=== PATIENT | female | born 1995 | race Hispanic/Latino ===

== ENCOUNTER → 2022-04-18 | Outpatient (REF) ==
[2022-04-18 10:35] LABS: RSV AMPLIFICATION NEGATIVE (NEGATIVE)
== END ==
LOC: M EMP 08:03
PROVIDERS: ATTEND Family Medicine
DX: Z20.822 Contact with and (suspected) exposure to COVID-19 (principal)

== ENCOUNTER 2022-04-21 23:32 | Emergency (ER) | payer OTHER ==
[~2022-04-21] VITALS: Ht 152.4 cm; Wt 77.4 kg
[2022-04-22] MEDS ORDERED: ACETAMINOPHEN 325 MG TAB PO ONE (00:45)
[2022-04-22 01:53] VITALS: BP 118/74
== END 2022-04-22 01:55 | disposition home or self-care (01) ==
LOC: M ED 23:32
DX: J02.9 Acute pharyngitis, unspecified (principal); R05.9 Cough, unspecified; E28.2 Polycystic ovarian syndrome

== ENCOUNTER → 2022-08-21 | Outpatient (REF) | LOC: M LABSMTC 09:38 | PROVIDERS: ATTEND Family Medicine | DX: Z20.822 Contact with and (suspected) exposure to COVID-19 (principal); Z11.52 Encounter for screening for COVID-19 ==

== ENCOUNTER → 2022-08-24 | Outpatient (REF) | LOC: M EMP 08:54 | PROVIDERS: ATTEND Family Medicine | DX: Z20.822 Contact with and (suspected) exposure to COVID-19 (principal); Z11.52 Encounter for screening for COVID-19 ==

== ENCOUNTER → 2023-06-10 | Outpatient (CLI) | payer OTHER | LOC: M WHC 09:52 | PROVIDERS: ATTEND Advanced Practice Midwife | DX: O44.10 Complete placenta previa with hemorrhage, unspecified trimester (principal); Z3A.22 22 weeks gestation of pregnancy ==

== ENCOUNTER 2023-10-14 16:47 | Inpatient (IN) | payer OTHER ==
[~2023-10-14] VITALS: Ht 152.4 cm; Wt 85.4 kg
[2023-10-14] MEDS ORDERED: PRENTAB9 PO (17:03)
[2023-10-14] MEDS ORDERED: HOME MED LIST COMPLETE! XX SCH (17:05)
[2023-10-14 17:14] VITALS: BP 117/72
[2023-10-14 17:43] LABS: HEMATOCRIT 39.1 % (36.0-47.0); MEAN CORPUSCULAR HEMOGLOBIN 27.5 pg (27.0-33.0); MEAN CORPUSCULAR HGB CONC 33.2 g/dl (32.0-36.5); MEAN CORPUSCULAR VOLUME 82.8 fl (80.0-96.0); PLATELET COUNT, AUTOMATED 306 10^3/uL (150-450); RED BLOOD COUNT 4.72 10^6/uL (4.00-5.40); WHITE BLOOD COUNT 9.4 10^3/uL (4.0-10.0)
[2023-10-14] MEDS ORDERED: LACTATED RINGER'S 1000 ML IV STA (17:51)
[2023-10-14] MEDS ORDERED: OXYTOCIN INJ 10UNITS/ML 1ML VIAL IV PRN (17:55)
[2023-10-14] MEDS ORDERED: CARBOPROST TROMETHAMINE 250 MCG/ML AMP IM PRN (17:55)
[2023-10-14] MEDS ORDERED: OXYTOCIN DRIP 30 UNITS in IV 1 EA IV PRN ×6 (17:55)
[2023-10-14] MEDS ORDERED: OXYTOCIN DRIP 30 UNITS in IV 1 EA IV SCH (17:55)
[2023-10-14] MEDS ORDERED: LIDOCAINE 1% MDV 20ML VIAL INFIL PRN (17:55)
[2023-10-14] MEDS ORDERED: TRANEXAMIC ACID INJection 1,000 MG in NS 100 ML IV PRN (17:55)
[2023-10-14] MEDS ORDERED: METHYLERGONOVINE MALEATE 0.2MG/ML 1ML VIAL IM PRN (17:55)
[2023-10-14] MEDS ORDERED: OXYTOCIN INJ 10UNITS/ML 1ML VIAL IM PRN (17:55)
[2023-10-14 18:06] VITALS: BP 116/60
[2023-10-14] MEDS: LR 1,000 ML IV SCH ×2 (18:09→22:32)
[2023-10-14] MEDS: miSOPROStol 50MCG 1/2 TABLET PO PRN (18:19)
[2023-10-14 19:22] VITALS: BP 111/59
[2023-10-14 20:29] VITALS: BP 127/63
[2023-10-14 22:12] VITALS: BP 99/53
[2023-10-14 23:39] VITALS: BP 94/55
[2023-10-15] VITALS (37 sets, daily range): BP systolic 96–189; BP diastolic 48–157
[2023-10-15] MEDS: miSOPROStol 50MCG 1/2 TABLET PO PRN (03:44)
[2023-10-15] MEDS: LR 1,000 ML IV SCH ×5 (03:46→23:56)
[2023-10-15] MEDS ORDERED: EPIDURAL/PCA KEYS XX PRN (15:35)
[2023-10-15] MEDS ORDERED: ONDANSETRON 4MG 2ML VIAL IV PRN (15:35)
[2023-10-15] MEDS ORDERED: ePHEDrine SULFATE 25 MG/5 ML(5MG/ML) SYRINGE IVP PRN (15:35)
[2023-10-15] MEDS ORDERED: LR 500 ML IV PRN (15:35)
[2023-10-15] MEDS ORDERED: NALOXONE INJ 0.4MG/1ML VIAL IV PRN (15:35)
[2023-10-15] MEDS ORDERED: diphenhydrAMINE 50MG/ML VIAL IV PRN (15:35)
[2023-10-15] MEDS: FENTANYL/ROPIVACAINE/NACL BAG 100 ML EPIDURAL SCH (16:01)
[2023-10-16] VITALS (23 sets, daily range): BP systolic 93–148; BP diastolic 52–87; TEMP 98.4; O2SAT 96–99
[2023-10-16] MEDS: FENTANYL/ROPIVACAINE/NACL BAG 100 ML EPIDURAL SCH (00:29)
[2023-10-16] MEDS ORDERED: ACETAMINOPHEN 500 MG TAB PO ONE (07:00)
[2023-10-16] MEDS ORDERED: CLINDAMYCIN 900 MG in IV 1 EA IV ONE ×2 (07:00→15:05)
[2023-10-16] MEDS ORDERED: GENTAMICIN 120 MG in D5W 50 ML IV ONE (08:00)
[2023-10-16] MEDS ORDERED: AZITHROMYCIN INJ 500 MG, VIAL MATE ADAPTER 1 EACH in NS 250 ML IV ONE (09:30)
[2023-10-16] MEDS ORDERED: fentaNYL 100 MCG/2 ML INJECTION As Ordered ONE (09:44)
[2023-10-16] MEDS ORDERED: ONDANSETRON 4MG 2ML VIAL As Ordered ONE (09:44)
[2023-10-16] MEDS ORDERED: LIDOCAINE PRES-FREE 2% 10ML AMP As Ordered ONE (09:44)
[2023-10-16] MEDS ORDERED: OXYTOCIN INJ 10UNITS/ML 1ML VIAL As Ordered ONE ×2 (09:44→10:15)
[2023-10-16] MEDS ORDERED: MORPHINE PRES-FREE INJ 10 MG/10 ML VIAL As Ordered ONE (09:44)
[2023-10-16 10:08] LABS: CORD GAS ABE V -9.6; CORD GAS HCO3 V 18.8 MMOL/L; CORD GAS O2 SAT V 31.6 %; CORD GAS PH V 7.185 UNITS; CORD GAS PO2 V 18.4 mmHg; CORD GAS SBC V 15.5 MMOL/L; CORD GAS TCO2 V 20.4 MMOL/L
[2023-10-16 10:09] LABS: CORD GAS ABE A -10.8; CORD GAS HCO3 A 19.3 MMOL/L; CORD GAS O2 SAT A 20.9 %; CORD GAS PCO2 A 60.7 mmHg; CORD GAS PH A 7.121 UNITS; CORD GAS PO2 A 16.3 mmHg; CORD GAS SBC A 14.5 MMOL/L; CORD GAS TCO2 A 21.2 MMOL/L
[2023-10-16] MEDS ORDERED: diphenhydrAMINE 50MG/ML VIAL As Ordered ONE (10:15)
[2023-10-16] MEDS ORDERED: KETAMINE HCL 200MG/20ML VIAL As Ordered ONE (10:15)
[2023-10-16] MEDS ORDERED: PHENYLephrine 500MCG 5ML (100MCG/ML) SYRINGE As Ordered ONE (10:27)
[2023-10-16] MEDS ORDERED: MIDAZOLAM INJ 2MG/2ML VIAL As Ordered ONE (10:27)
[2023-10-16] MEDS ORDERED: oxyCODONE 5MG TAB PO PRN ×2 (11:05)
[2023-10-16] MEDS ORDERED: METOCLOPRAMIDE INJ 10MG/2ML VIAL IV PRN (11:05)
[2023-10-16] MEDS ORDERED: METHYLERGONOVINE MALEATE 0.2MG/ML 1ML VIAL IM PRN (11:05)
[2023-10-16] MEDS ORDERED: OXYTOCIN DRIP 30 UNITS in IV 1 EA IV SCH (11:05)
[2023-10-16] MEDS ORDERED: ONDANSETRON 4MG 2ML VIAL IV PRN (11:05)
[2023-10-16] MEDS: LR 1,000 ML IV SCH ×2 (11:05→19:44)
[2023-10-16] MEDS ORDERED: SIMETHICONE 80MG CHEW TAB PO PRN (11:05)
[2023-10-16] MEDS ORDERED: RHOGAM 300MCG (1500IU) INJ IM SCH (11:05)
[2023-10-16] MEDS ORDERED: KETOROLAC 60MG 2ML VIAL As Ordered ONE (11:19)
[2023-10-16] MEDS ORDERED: OXYTOCIN 30UNITS IN 0.9% NaCl 500ML IV BAG As Ordered ONE (11:19)
[2023-10-16] MEDS: ACETAMINOPHEN 500 MG TAB PO SCH ×4 (13:28→23:15)
[2023-10-16] MEDS: KETOROLAC 30 MG/ML 1ML VIAL IV SCH ×2 (18:06→23:15)
[2023-10-16] MEDS: DOCUSATE SODIUM 100MG CAPSULE PO SCH (22:46)
[2023-10-17 02:00] VITALS: BP 92/47; O2SAT 96
[2023-10-17 05:29] VITALS: BP 108/56; O2SAT 97
[2023-10-17 05:46] LABS: HEMATOCRIT 28.4 % (36.0-47.0); HEMOGLOBIN 9.3 g/dl (12.0-15.5); MEAN CORPUSCULAR HEMOGLOBIN 27.6 pg (27.0-33.0); MEAN CORPUSCULAR HGB CONC 32.7 g/dl (32.0-36.5); MEAN CORPUSCULAR VOLUME 84.3 fl (80.0-96.0); PLATELET COUNT, AUTOMATED 202 10^3/uL (150-450); RED BLOOD COUNT 3.37 10^6/uL (4.00-5.40); WHITE BLOOD COUNT 14.6 10^3/uL (4.0-10.0)
[2023-10-17] MEDS: ACETAMINOPHEN 500 MG TAB PO SCH ×4 (06:04→23:30)
[2023-10-17] MEDS: KETOROLAC 30 MG/ML 1ML VIAL IV SCH (06:05)
[2023-10-17 10:00] VITALS: BP 113/65; O2SAT 98
[2023-10-17] MEDS: DOCUSATE SODIUM 100MG CAPSULE PO SCH ×2 (10:08→21:46)
[2023-10-17] MEDS: PRENATAL VITAMINS CHEWABLE TABLET PO SCH (10:08)
[2023-10-17] MEDS: IBUPROFEN 800 MG TAB PO SCH ×2 (15:46→21:47)
[2023-10-17 19:14] VITALS: BP 117/65; O2SAT 96
[2023-10-17 22:00] VITALS: BP 122/59; O2SAT 97
[2023-10-18 02:00] VITALS: BP 134/62; O2SAT 98
[2023-10-18 06:00] VITALS: BP 122/62
[2023-10-18] MEDS: IBUPROFEN 800 MG TAB PO SCH (06:17)
[2023-10-18] MEDS: ACETAMINOPHEN 500 MG TAB PO SCH (06:17)
[2023-10-18] MEDS ORDERED: IBUP80TA PO (06:24)
[2023-10-18] MEDS ORDERED: OXYC-517 PO (06:24)
[2023-10-18] MEDS ORDERED: COLA100C5 PO (06:24)
[2023-10-18] MEDS ORDERED: ACET-683 PO (06:24)
[2023-10-18] MEDS ORDERED: MEASLES,MUMPS,RUBELLA VACCINE INJ (MMR-II) SC.IMMUN ONE (09:00)
[2023-10-18 10:00] VITALS: BP 110/70; O2SAT 99
[2023-10-18] MEDS: PRENATAL VITAMINS CHEWABLE TABLET PO SCH (10:17)
[2023-10-18] MEDS: DOCUSATE SODIUM 100MG CAPSULE PO SCH (10:17)
== END 2023-10-18 11:45 | disposition home or self-care (01) | DRG 771 ==
LOC: M LDI 16:47 → M OBS 10-16 12:25
PROVIDERS: ADMIT Obstetrics & Gynecology; ATTEND Obstetrics & Gynecology
PROC: 3E0P7VZ Introduction of Hormone into Female Reproductive, Via Natural or Artificial Opening (ICD-10-PCS; 2023-10-15)
PROC: 3E033VJ Introduction of Other Hormone into Peripheral Vein, Percutaneous Approach (ICD-10-PCS; 2023-10-15)
PROC: 10D00Z1 Extraction of Products of Conception, Low, Open Approach (ICD-10-PCS; principal; 2023-10-16 09:45)
DX: O48.0 Post-term pregnancy (principal); O41.1030 Infection of amniotic sac and membranes, unspecified, third trimester, not applicable or unspecified; Z37.0 Single live birth; Z3A.41 41 weeks gestation of pregnancy; E66.9 Obesity, unspecified; O99.214 Obesity complicating childbirth; O75.81 Maternal exhaustion complicating labor and delivery; O66.5 Attempted application of vacuum extractor and forceps; O76 Abnormality in fetal heart rate and rhythm complicating labor and delivery; O32.4XX0 Maternal care for high head at term, not applicable or unspecified

== ENCOUNTER 2024-11-20 11:41 | Emergency (ER) | payer OTHER ==
[~2024-11-20] VITALS: Ht 152.4 cm; Wt 85.5 kg
[~2024-11-20 11:41] MED LIST: ACET-683 PO; COLA100C5 PO; IBUP80TA PO; OXYC-517 PO; PRENTAB9 PO
[2024-11-20 11:45] VITALS: BP 134/58; TEMP 99.1; O2SAT 96
[2024-11-20] MEDS: ACETAMINOPHEN 500 MG TAB PO ONE (13:05)
[2024-11-20] MEDS: KETOROLAC 60MG 2ML VIAL IM ONE (13:05)
[2024-11-20 13:28] LABS: URINE PREG TEST NEGATIVE (NEGATIVE)
[2024-11-20] MEDS ORDERED: AMOX500T PO (15:26)
== END 2024-11-20 16:06 | disposition home or self-care (01) ==
LOC: M ED 11:41
DX: J18.9 Pneumonia, unspecified organism (principal); Z79.1 Long term (current) use of non-steroidal anti-inflammatories (NSAID); Z79.2 Long term (current) use of antibiotics; Z79.899 Other long term (current) drug therapy
CPT/HCPCS: 71045; 74176; 81001; 84703; 87486; 87581; 87633; 87798; 96372; 99284; J1885